=== PATIENT | female | born 1950 | race Caucasian/White ===

== ENCOUNTER → 2018-04-24 | Outpatient (CLI) | payer BC ==
[~2018-04-24] MED LIST: OMEPRAZOLE 20 M20 M1 PO; [UNRECOGNIZED DRUG - OTHER] PO
== END ==
LOC: RAD 15:04
DX: Z12.31 Encounter for screening mammogram for malignant neoplasm of breast (principal)

== ENCOUNTER → 2019-07-12 | Outpatient (CLI) | payer BC | LOC: RAD 14:25 | DX: Z12.31 Encounter for screening mammogram for malignant neoplasm of breast (principal) ==